=== PATIENT | male | born 1970 | race Caucasian/White ===

== ENCOUNTER 2019-02-08 11:15 | Inpatient (IN) ==
[2019-02-08] MEDS ORDERED: SINEMET 25/100 PO PRN (13:19)
[2019-02-08] MEDS ORDERED: TUBERSOL ID ONE (13:19)
[2019-02-08] MEDS ORDERED: SENOKOT PO PRN (13:19)
[2019-02-08] MEDS ORDERED: D5W 1,000 ML IV PRN (13:19)
[2019-02-08] MEDS ORDERED: ZOFRAN IV PRN (13:19)
[2019-02-08] MEDS ORDERED: IMODIUM PO PRN (13:19)
[2019-02-08] MEDS ORDERED: MAALOX PLUS LIQUID PO PRN (13:19)
[2019-02-08] MEDS ORDERED: DESYREL PO PRN (13:19)
[2019-02-08] MEDS ORDERED: PHENOBARBITAL IV PRN (13:19)
[2019-02-08] MEDS ORDERED: BENTYL PO PRN (13:19)
[2019-02-08] MEDS ORDERED: ZOFRAN ODT PO PRN (13:19)
[2019-02-08] MEDS ORDERED: TYLENOL PO PRN (13:19)
[2019-02-08] MEDS ORDERED: DULCOLAX PR PRN (13:19)
[2019-02-08] MEDS ORDERED: ROBAXIN PO PRN (13:19)
[2019-02-08] MEDS ORDERED: SUBOXONE 2 MG/0.5 MG FILM SL SCH (13:30)
[2019-02-08 13:52] LABS: UR AMPHETAMINES QUAL NONE DETECTED (NONE DETECT); UR BARBITUATES QUAL NONE DETECTED (NONE DETECT); UR BENZODIAZEPIN QUAL NONE DETECTED (NONE DETECT); UR CANNABINOIDS QUAL NONE DETECTED (NONE DETECT); UR COCAINE QUAL NONE DETECTED (NONE DETECT); UR METHADONE QUAL NONE DETECTED (NONE DETECT); UR METHAMPHETAMINE QUAL NONE DETECTED (NONE DETECT); UR OPIATES QUAL NONE DETECTED (NONE DETECT); UR OXYCODONE QUAL NONE DETECTED (NONE DETECT); UR PCP QUAL NONE DETECTED (NONE DETECT); UR PROPOXYPHENE QUAL NONE DETECTED (NONE DETECT); UR TCA QUAL NONE DETECTED (NONE DETECT)
[2019-02-08 13:53] LABS: HEMATOCRIT 37.3 % (42.0-52.0); HEMOGLOBIN 12.7 g/dL (14.0-18.0); MCH 30.2 PG (27-31); MCV 88.8 FL (81-99); RBC 4.2 XMIL (4.7-6.1); WBC 6.81 X1000 (4.8-10.8)
[2019-02-08 14:12] LABS: AMYLASE 89 U/L (20-200); LIPASE 24 U/L (13-60)
[2019-02-08 14:15] LABS: AGAP 11; BUN 26 mg/dL (8-22); CHLORIDE 97 mmol/L (98-107); COSMO 269; CREATININE 0.9 mg/dL (0.7-1.2); ESTIMATED GFR > 60; GLUCOSE 88 mg/dL (70-104); POTASSIUM 4.2 mmol/L (3.5-5.1); SODIUM 132 mmol/L (136-145); TCO2 25 mmol/L (25-35); TOTAL PROTEIN 7.6 g/dL (6.3-8.3)
[2019-02-08 14:16] LABS: ALBUMIN 4.5 g/dL (3.5-5.0); ALKALINE PHOSPHATASE 101 U/L (32-122); GOT 19 U/L (10-34); GPT 18 U/L (10-44)
[2019-02-08 14:17] LABS: INR 0.92; PROTIME 12.8 Seconds (11.0-16.0)
[2019-02-08] MEDS: NICODERM PATCH TD PRN (16:31)
[2019-02-08] MEDS: SUBOXONE 2 MG/0.5 MG FILM SL SCH (18:42)
[2019-02-08] MEDS: MOTRIN PO PRN (21:52)
[2019-02-09 02:42] LABS: URINE SOURCE VOIDED
[2019-02-09 03:32] LABS: BILIRUBIN URINE NEGATIVE (NEGATIVE); BLOOD URINE NEGATIVE (NEGATIVE); CLARITY CLEAR (CLEAR); COLOR YELLOW; GLUCOSE URINE NEGATIVE (NEGATIVE); KETONE URINE NEGATIVE (NEGATIVE); LEUKOCYTES URINE NEGATIVE (NEGATIVE); NITRITE URINE NEGATIVE (NEGATIVE); PROTEIN URINE NEGATIVE (NEGATIVE); SP GRAVITY URINE 1.015; UROBILINOGEN URINE NORMAL
[2019-02-09] MEDS: SUBOXONE 2 MG/0.5 MG FILM SL SCH ×2 (04:42→16:15)
[2019-02-09] MEDS: PROTONIX PO SCH (06:01)
[2019-02-09] MEDS: THERA M PLUS PO SCH (08:06)
[2019-02-09] MEDS: FOLIC ACID PO SCH (08:06)
[2019-02-09] MEDS: VITAMIN B-1 PO SCH (08:06)
[2019-02-09] MEDS ORDERED: PRINZIDE 20/12.5MG PO SCH (09:00)
[2019-02-09] MEDS ORDERED: NON-FORMULARY MED (Omeprazole 1 CAP) PO SCH (09:00)
[2019-02-09] MEDS ORDERED: HYDROCHLOROTHIAZIDE PO SCH (09:00)
[2019-02-09] MEDS ORDERED: PRINIVIL PO SCH (09:00)
[2019-02-09] MEDS: NICODERM PATCH TD PRN (13:22)
[2019-02-09] MEDS: ATARAX PO PRN (18:14)
--- NOTE | 2019-02-09 19:14 | PROGRESS NOTE ---
DATE: 02/09/2019 SUBJECTIVE: The patient notes that he is feeling a lot better. He still fatigued. Blood pressures are still low. Denies any fevers or chills. PHYSICAL EXAMINATION: Vital Signs: Reviewed. Blood pressure is 80s to 90s systolic. Temperature 97.8 degrees. General: He is awake, alert. Patient is pleasant. He is lying flat in the bed. HEENT: Normocephalic. Neck: Supple. Cardiovascular: Regular rate. Chest: Clear. Abdomen: Soft. Extremities: Moves all extremities. Neurologic: No changes. ASSESSMENT: 1. Nausea and vomiting. 2. Abdominal pain. 3. Myalgias. 4. Paresthesias. 5. Paroxysmal sweating. 6. Opiate abuse withdrawal and stabilization. PLAN: We will continue patient in the hospital, continue to follow. Further orders as needed. Will monitor his blood pressure. cc: Jerald Archer MD
[2019-02-10] MEDS: MOTRIN PO PRN ×2 (00:40→21:52)
[2019-02-10] MEDS: SUBOXONE 2 MG/0.5 MG FILM SL SCH ×2 (04:05→16:27)
[2019-02-10] MEDS: PROTONIX PO SCH (06:28)
[2019-02-10] MEDS: THERA M PLUS PO SCH (08:38)
[2019-02-10] MEDS: FOLIC ACID PO SCH (08:38)
[2019-02-10] MEDS: VITAMIN B-1 PO SCH (08:38)
[2019-02-10] MEDS: SEROQUEL PO PRN (21:52)
[2019-02-10] MEDS: LIBRIUM PO PRN (21:53)
[2019-02-11] MEDS: PROTONIX PO SCH (06:18)
[2019-02-11] MEDS: SUBOXONE 2 MG/0.5 MG FILM SL SCH ×3 (06:18→22:04)
--- NOTE | 2019-02-11 09:07 | PROGRESS NOTE ---
DATE: 02/11/2019 SUBJECTIVE: The patient notes that overall, he is starting to feel a lot better. He is still having some muscle aches, but improved. His tremors have resolved. His sweating has resolved. PHYSICAL EXAMINATION: Vital Signs: Reviewed and stable. General: He is awake and alert. He is in no respiratory distress. HEENT: Normocephalic. Neck: Supple. Cardiovascular: Regular rate. Chest: Clear. Abdomen: Soft. Extremities: Moves all extremities. Neurologic: No changes. ASSESSMENT: 1. Nausea and vomiting. 2. Abdominal pain. 3. Myalgias. 4. Paresthesias. 5. Paroxysmal sweating. 6. Alcohol abuse, withdrawal, and stabilization. PLAN: Will continue the patient in the hospital. Continue to follow. Further orders as needed. Hopefully, we can continue to wean Librium, and discharge over the next few days cc: Jerald Archer MD MTDD
[2019-02-11] MEDS: THERA M PLUS PO SCH (10:56)
[2019-02-11] MEDS: FOLIC ACID PO SCH (10:56)
[2019-02-11] MEDS: VITAMIN B-1 PO SCH (10:56)
--- NOTE | 2019-02-11 13:55 | PROGRESS NOTE ---
DATE: 02/11/2019 SUBJECTIVE: Patient notes he is still having some withdrawal symptoms, some muscle aches, myalgias, denies any paresthesias. Having occasional sweating. Denies tremors. The patient notes his blood pressures have been elevated prior to coming to the ER, had actually been taking several extra of his blood pressure medications. This certainly may have accounted for his low blood pressures on arrival in the first day. PHYSICAL: Vital Signs: Reviewed. Blood pressures are much improved currently. Temperature 98 degrees, pulse 56, respiratory 18, BP 128/84. General: Patient is awake, alert, he is in no respiratory distress, pleasant. HEENT: Normocephalic. Neck: Supple. CV: Regular rate. Chest: Clear. Abdomen: Soft. Extremities: Moves all extremities. ASSESSMENT: 1. Hypotension appears resolved. Unsure if this is due to his extra blood pressure medications or due to Suboxone although Suboxone does not typically drop blood pressure is that low. 2. Nausea, vomiting . 3. Abdominal pain. 4. Paresthesias. 5. Opiate abuse withdrawal and stabilization. PLAN: Overall patient has improved although he is still having some withdrawal symptoms. Will continue him on Suboxone, will increase his dose to 4 mg as the 2 mg created worsened withdrawal symptoms. cc: Jerald Archer MD
[2019-02-11] MEDS: MOTRIN PO PRN (14:03)
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
[2019-02-11] MEDS: ATARAX PO PRN (22:12)
[2019-02-12] MEDS: LIBRIUM PO PRN (00:52)
[2019-02-12] MEDS: SEROQUEL PO PRN (00:52)
[2019-02-12] MEDS: PROTONIX PO SCH (06:16)
[2019-02-12 07:59] VITALS: BP 146/83
[2019-02-12] MEDS: SUBOXONE 2 MG/0.5 MG FILM SL SCH (09:45)
[2019-02-12] MEDS: VITAMIN B-1 PO SCH (09:45)
[2019-02-12] MEDS: MOTRIN PO PRN (09:46)
[2019-02-12] MEDS: FOLIC ACID PO SCH (09:46)
[2019-02-12] MEDS: THERA M PLUS PO SCH (09:46)
[2019-02-12] MEDS ORDERED: SUBOXONE 2 MG/0.5 MG FILM SL ONE (09:58)
--- NOTE | 2019-02-13 19:43 | DISCHARGE SUMMARY ---
ADMISSION DATE: 02/08/2019 DISCHARGE DATE: 02/12/2019 DISCHARGE DIAGNOSES: 1. Nausea and vomiting. 2. Abdominal pain. 3. Myalgias. 4. Paresthesias. 5. Paroxysmal sweating. 6. Opiate abuse withdrawal and stabilization. 7. Chronic hypertension. 8. Chronic reflux. 9. Anxiety. 10. History of seizures during withdrawal episodes. CONSULTATIONS: None. PROCEDURES: None. BRIEF HOSPITAL COURSE: The patient is a 48-year-old male who presented to [facility] secondary to nausea, vomiting, abdominal pain, tremors, and myalgias. The patient has a history of seizures as well as suicide attempts during withdrawal periods. Thankfully, he had uneventful hospital course. His blood pressures were actually quite low upon initial presentation. After patient cleared up, and began thinking more appropriately, he does note that he had taken several extra blood pressure pills prior to coming to the ER thinking this would improve his withdrawal as well as his blood pressure. After these extra pills wore off, his blood pressures did start creeping back up. Unfortunately, he was still quite in significant withdrawal from opiates. Therefore, we had to increase his Suboxone ultimately up to 8/2 twice daily which he tolerated very well. On discharge, he is awake, alert, and oriented. He is in no distress. DISPOSITION: Patient will be discharged home. Prescription was written. He will follow up outpatient with treatment facility of choice. Discussed with patient again that he needs to avoid all persons, places, and situations om which he has been using and abusing in the past. He needs outpatient life counseling as well as drug counseling. TIME SPENT: Greater than 30 minutes was spent in total care. cc: Jerald Archer MD
== END 2019-02-12 11:49 | disposition home or self-care (01) | DRG 897 ==
LOC: P.DIRADM 11:15 → P.MEDSURG 11:29
PROVIDERS: ADMIT Family Medicine; ATTEND Family Medicine